=== PATIENT | female | born 1960 | race Caucasian/White ===

== ENCOUNTER 2017-07-03 03:41 | Inpatient (IN) | payer MEDICARE, BC ==
[2017-07-03 04:24] LABS: BASOPHILS % (AUTO) 1 % (0-3); EOSINOPHILS % (AUTO) 2 % (0-9); HEMATOCRIT 36 % (35-47); MEAN CORPUSCULAR HGB CONC 33.3 gm/dl (32.0-36.0); MONOCYTES % (AUTO) 8.7 % (0-12)
[2017-07-03 04:25] LABS: MEAN CORPUSCULAR VOLUME 81 fL (81-99)
[2017-07-03] MEDS ORDERED: VANCOMYCIN HCL 500 MG PDS 1,000 MG in SODIUM CHLORIDE 0.9% 250 ML 250 ML IV ONE (05:17)
[2017-07-03] MEDS ORDERED: SODIUM CHLORIDE 0.9% 250 ML 250 ML IV ONE (05:40)
[2017-07-03] MEDS ORDERED: VANCOMYCIN HYDROCHLORIDE 500 MG PDS IV ONE (05:40)
[2017-07-03 06:37] LABS: CALCIUM 8.5 mg/dl (8.5-10.1); POTASSIUM 4.1 mMol/L (3.5-5.1)
[2017-07-03] MEDS ORDERED: PIPERACILLIN/TAZOBACT 3.375 GM PDS IV ONE ×4 (06:45→22:53)
[2017-07-03] MEDS ORDERED: SODIUM CHLORIDE 0.9% 100 ML 100 ML IV ONE ×4 (06:45→22:53)
[2017-07-03] MEDS: PIPERACILLIN/TAZOBACT 3.375 GM 3.375 GM in SODIUM CHLORIDE 0.9% 100 ML 100 ML IV SCH ×4 (07:05→23:56)
[2017-07-03] MEDS ORDERED: FLUCONAZOLE 100 MG TAB PO SCH (08:15)
[2017-07-03] MEDS: ATENOLOL 25 MG TAB PO SCH (09:59)
[2017-07-03] MEDS: SILVER SULFADIAZINE CREAM 1 APPL CRE TOP SCH (09:59)
[2017-07-03] MEDS: SODIUM CHLORIDE 0.9% 50 ML 25 ML IV PRN ×4 (10:00→23:57)
[2017-07-03] MEDS: VENLAFAXINE HCL 150 MG CER PO SCH (10:00)
[2017-07-03] MEDS: ENOXAPARIN 40 MG SOL SC SCH (10:01)
[2017-07-03] MEDS: MULTIVITAMIN2 1 EA TAB PO SCH (10:01)
[2017-07-03] MEDS: VENLAFAXINE ER 37.5 MG CAPSULE PO SCH (10:01)
[2017-07-03] MEDS: FUROSEMIDE 80 MG TAB PO SCH (10:01)
[2017-07-03] MEDS: ACETAMINOPHEN 500 MG 500 MG TAB PO PRN (12:06)
[2017-07-03] MEDS: IBUPROFEN 600 MG TAB PO PRN (15:08)
[2017-07-03] MEDS: PRAVASTATIN SODIUM 20 MG TAB PO SCH (21:27)
[2017-07-03] MEDS: [UNRECOGNIZED DRUG - OTHER] PO SCH (21:29)
[2017-07-03] MEDS: AMITRIPTYLINE 25 MG TAB PO SCH (21:29)
[2017-07-04] MEDS: PIPERACILLIN/TAZOBACT 3.375 GM 3.375 GM in SODIUM CHLORIDE 0.9% 100 ML 100 ML IV SCH (06:05)
[2017-07-04] MEDS: SODIUM CHLORIDE 0.9% 50 ML 25 ML IV PRN (06:06)
[2017-07-04] MEDS: SODIUM CHLORIDE 0.9% FLUSH 10 ML SOL IV SCH ×2 (06:07→14:27)
[2017-07-04 07:27] LABS: CALCIUM 8.2 mg/dl (8.5-10.1); POTASSIUM 4.2 mMol/L (3.5-5.1)
[2017-07-04 07:28] LABS: BASOPHILS % (AUTO) 1 % (0-3); EOSINOPHILS % (AUTO) 4 % (0-9); HEMATOCRIT 34 % (35-47); MEAN CORPUSCULAR HGB CONC 32.8 gm/dl (32.0-36.0); MEAN CORPUSCULAR VOLUME 83 fL (81-99); MONOCYTES % (AUTO) 9.7 % (0-12); NEUTROPHILS % (AUTO) 57.2 % (37-80)
[2017-07-04] MEDS ORDERED: AUGMENTIN(FRIDGE) 400 MG/5 ML PO SCH (08:30)
[2017-07-04] MEDS: MULTIVITAMIN2 1 EA TAB PO SCH (09:24)
[2017-07-04] MEDS: FUROSEMIDE 80 MG TAB PO SCH (09:25)
[2017-07-04] MEDS: VENLAFAXINE ER 37.5 MG CAPSULE PO SCH (09:26)
[2017-07-04] MEDS: ATENOLOL 25 MG TAB PO SCH (09:27)
[2017-07-04] MEDS: VENLAFAXINE HCL 150 MG CER PO SCH (09:27)
[2017-07-04] MEDS: DOXYCYCLINE 100 MG TAB PO SCH ×2 (09:27→20:33)
[2017-07-04] MEDS: CLOTRIMAZOLE 1% CREAM TOP SCH ×2 (09:30→20:35)
[2017-07-04] MEDS: SILVER SULFADIAZINE CREAM 1 APPL CRE TOP SCH ×3 (09:30→20:35)
[2017-07-04] MEDS: TRIAMCINOLONE 0.1% CREAM CRE TOP SCH ×2 (09:30→20:36)
[2017-07-04] MEDS: ENOXAPARIN 40 MG SOL SC SCH (09:31)
[2017-07-04] MEDS: AMITRIPTYLINE 25 MG TAB PO SCH (20:33)
[2017-07-04] MEDS: [UNRECOGNIZED DRUG - OTHER] PO SCH (20:33)
[2017-07-04] MEDS: IBUPROFEN 600 MG TAB PO PRN (20:34)
[2017-07-04] MEDS: PRAVASTATIN SODIUM 20 MG TAB PO SCH (20:34)
[2017-07-04] MEDS ORDERED: ZOLPIDEM TARTRATE 5 MG TAB PO ONE (21:00)
[2017-07-05 07:23] LABS: BASOPHILS % (AUTO) 1 % (0-3); EOSINOPHILS % (AUTO) 4 % (0-9); HEMATOCRIT 36 % (35-47); MEAN CORPUSCULAR VOLUME 82 fL (81-99); MONOCYTES % (AUTO) 9.8 % (0-12); NEUTROPHILS % (AUTO) 56.6 % (37-80)
[2017-07-05 07:36] LABS: CALCIUM 8.4 mg/dl (8.5-10.1); POTASSIUM 3.9 mMol/L (3.5-5.1)
[2017-07-05 08:08] VITALS: BP 141/79; PULSE 89; RESP 18; TEMP 98.1; O2SAT 95
[2017-07-05] MEDS: MULTIVITAMIN2 1 EA TAB PO SCH (09:54)
[2017-07-05] MEDS: FUROSEMIDE 80 MG TAB PO SCH (09:55)
[2017-07-05] MEDS: VENLAFAXINE ER 37.5 MG CAPSULE PO SCH (09:55)
[2017-07-05] MEDS: ATENOLOL 25 MG TAB PO SCH (09:56)
[2017-07-05] MEDS: VENLAFAXINE HCL 150 MG CER PO SCH (09:56)
[2017-07-05] MEDS: DOXYCYCLINE 100 MG TAB PO SCH (09:56)
[2017-07-05] MEDS: ENOXAPARIN 40 MG SOL SC SCH (09:58)
[2017-07-05] MEDS: CLOTRIMAZOLE 1% CREAM TOP SCH (10:06)
[2017-07-05] MEDS: TRIAMCINOLONE 0.1% CREAM CRE TOP SCH (10:06)
[2017-07-05] MEDS: SILVER SULFADIAZINE CREAM 1 APPL CRE TOP SCH (10:59)
[2017-07-05] MEDS: ACETAMINOPHEN 500 MG 500 MG TAB PO PRN (11:45)
[2017-07-05] MEDS ORDERED: INFLUENZA VIRUS VACCINE 0.5 ML SUS IM ONE (15:45)
[2017-07-05] MEDS ORDERED: PNEUMOCOCCAL VACCINE 0.5 ML SOL IM ONE (15:45)
== END 2017-07-05 17:00 | disposition home health service (06) | DRG 603 ==
LOC: ED 03:41 → ACUTE CARE 05:02
PROVIDERS: ADMIT Family Medicine; ATTEND Family Medicine
PROC: F01ZDZZ Gait and/or Balance Assessment (ICD-10-PCS; principal; 2017-07-04)
PROC: F01ZCZZ Transfer Assessment (ICD-10-PCS; 2017-07-04)
PROC: 2W23X4Z Dressing of Abdominal Wall using Bandage (ICD-10-PCS; 2017-07-04)
PROC: 2W2QX4Z Dressing of Right Lower Leg using Bandage (ICD-10-PCS; 2017-07-04)
PROC: 2W26X4Z Dressing of Right Inguinal Region using Bandage (ICD-10-PCS; 2017-07-04)
PROC: 2W27X4Z Dressing of Left Inguinal Region using Bandage (ICD-10-PCS; 2017-07-04)
PROC: 2W1RX6Z Compression of Left Lower Leg using Pressure Dressing (ICD-10-PCS; 2017-07-05)
PROC: 2W1QX6Z Compression of Right Lower Leg using Pressure Dressing (ICD-10-PCS; 2017-07-05)
DX: L03.115 Cellulitis of right lower limb (principal); E11.65 Type 2 diabetes mellitus with hyperglycemia; L98.499 Non-pressure chronic ulcer of skin of other sites with unspecified severity; S81.801D Unspecified open wound, right lower leg, subsequent encounter; I83.018 Varicose veins of right lower extremity with ulcer other part of lower leg; L97.811 Non-pressure chronic ulcer of other part of right lower leg limited to breakdown of skin; E11.9 Type 2 diabetes mellitus without complications; I10 Essential (primary) hypertension; B37.2 Candidiasis of skin and nail; Z79.84 Long term (current) use of oral hypoglycemic drugs; L98.491 Non-pressure chronic ulcer of skin of other sites limited to breakdown of skin; L98.492 Non-pressure chronic ulcer of skin of other sites with fat layer exposed; R23.8 Other skin changes; R60.1 Generalized edema; R19.7 Diarrhea, unspecified
CPT/HCPCS: 29580; 36415; 80048; 82962; 85025; 85651; 90686; 90732; 99221; 99232; 99233; 99282; J1650; J2543; J3370; A6232; A6402; G0008